=== PATIENT | female | born 1975 | race African-American/Black ===

== ENCOUNTER 2021-03-16 13:54 | Emergency (ER) | payer MEDICAID ==
[~2021-03-16] VITALS: Ht 167.6 cm; Wt 59.0 kg
[2021-03-16] MEDS ORDERED: MECLIZINE 25MG TABLET PO ONE (15:15)
[2021-03-16 15:22] LABS: BASOPHILS % 2.4 % (0.0-2.0); EOSINOPHILS % 4.1 % (0.0-5.0); HEMATOCRIT. 32.4 % (36.0-48.0); MEAN CORPUSCULAR VOLUME 71.5 fL (81.0-99.0); MEAN PLATELET VOLUME 8.9 fl (7.4-10.4); MONOCYTES % 14.5 % (2.0-8.0); PLATELET 163 x1000/uL (130-400); RED BLOOD CELL COUNT 4.54 mill/uL (4.2-5.4); RED CELL DISTRIBUTION WIDTH 23.7 % (11.6-14.6)
[2021-03-16 15:27] LABS: CHLORIDE 106 mEq/L (98-107)
[2021-03-16 15:31] LABS: PROTHROMBIN TIME 10.9 sec (9.6-11.0)
[2021-03-16 15:46] LABS: CLARITY URINE CLEAR (CLEAR); COLOR URINE YELLOW (YELLOW); KETONES URINE NEGATIVE (NEGATIVE); LEUKOCYTE ESTERASE URINE NEGATIVE (NEGATIVE); NITRITE URINE NEGATIVE (NEGATIVE); OCCULT BLOOD URINE NEGATIVE (NEGATIVE); PROTEIN URINE NEGATIVE (NEGATIVE); SPECIFIC GRAVITY URINE 1.017 (1.005-1.030); UROBILINOGEN URINE 0.2 E.U./dL (0.2-1.0)
[2021-03-16 15:50] LABS: PLATELET ESTIMATE NORMAL
[2021-03-16] MEDS ORDERED: FERR324T4 MT (16:27)
[2021-03-16 16:36] VITALS: BP 123/96
== END 2021-03-16 16:49 | disposition home or self-care (01) ==
LOC: ER 14:08
DX: R42 Dizziness and giddiness (principal)
CPT/HCPCS: 36415; 71045; 80053; 81003; 81025; 85025; 85610; 93005; 99285; J8597

== ENCOUNTER 2022-02-10 15:38 | Emergency (ER) | payer MEDICAID ==
[~2022-02-10] VITALS: Ht 167.6 cm; Wt 61.0 kg
[~2022-02-10 15:38] MED LIST: FERR324T4 MT
[2022-02-10 16:00] VITALS: BP 134/77
[2022-02-10] MEDS ORDERED: ACETAMINOPHEN 325MG TABLET PO ONE (19:15)
[2022-02-10] MEDS ORDERED: FLUORESCEIN SODIUM 1MG/STRIP RIGHTEYE ONE (19:15)
[2022-02-10] MEDS ORDERED: TETRACAINE 0.5% OPHTH DROPS 4ML RIGHTEYE ONE (19:15)
[2022-02-10] MEDS ORDERED: ACET-2708 MT (19:30)
[2022-02-10] MEDS ORDERED: ERYT1OIN6 RIGHTEYE (19:30)
== END 2022-02-10 19:47 | disposition home or self-care (01) ==
LOC: ER 15:38
DX: S05.01XA Injury of conjunctiva and corneal abrasion without foreign body, right eye, initial encounter (principal); Y04.0XXA Assault by unarmed brawl or fight, initial encounter; Y93.89 Activity, other specified; Y92.89 Other specified places as the place of occurrence of the external cause; Y99.8 Other external cause status
CPT/HCPCS: 99283

== ENCOUNTER 2022-07-13 19:30 | Emergency (ER) | payer MEDICAID ==
[~2022-07-13] VITALS: Ht 170.2 cm; Wt 68.0 kg
[~2022-07-13 19:30] MED LIST changes: +ACET-2708 MT; +ERYT1OIN6 RIGHTEYE
[2022-07-13 19:41] VITALS: BP 143/96
== END 2022-07-13 21:40 | disposition left against medical advice (07) ==
LOC: ER 19:30
DX: Z53.21 Procedure and treatment not carried out due to patient leaving prior to being seen by health care provider (principal)

== ENCOUNTER 2023-11-22 10:54 | Emergency (ER) | payer MEDICAID ==
[~2023-11-22] VITALS: Ht 170.2 cm; Wt 78.0 kg
[2023-11-22 11:33] VITALS: O2SAT 98
[2023-11-22 12:41] LABS: CLARITY URINE CLEAR (CLEAR); COLOR URINE DARK YELLOW (YELLOW); GLUCOSE URINE NEGATIVE (NEGATIVE); KETONES URINE TRACE (NEGATIVE); LEUKOCYTE ESTERASE URINE NEGATIVE (NEGATIVE); NITRITE URINE NEGATIVE (NEGATIVE); OCCULT BLOOD URINE TRACE (NEGATIVE); PH URINE 5.5 (4.5-8.0); PROTEIN URINE TRACE (NEGATIVE); SPECIFIC GRAVITY URINE 1.038 (1.005-1.030)
[2023-11-22] MEDS: KETOROLAC 60MG/2ML VIAL IM ONE (12:49)
[2023-11-22] MEDS ORDERED: IBUP-2321 MT (13:39)
[2023-11-22] MEDS ORDERED: CYCL10TA21 MT (13:39)
[2023-11-22 14:04] VITALS: BP 140/78; PULSE 88; RESP 18; TEMP 98.7
[2023-11-22 14:10] LABS: SQUAMOUS EPITHELIAL CELL URINE 3+ /lpf (RARE/1+)
[2023-11-22 14:11] LABS: BACTERIA URINE 1+; CALCIUM OXALATE CRYSTALS URINE 4+ /lpf
[2023-11-22 14:12] LABS: MUCUS URINE 1+ /lpf (< = 2+); RBC URINE NONE SEEN /hpf (0-2); WBC URINE 0-2 /hpf (0-2)
== END 2023-11-22 14:05 | disposition home or self-care (01) ==
LOC: ER 10:54
DX: M54.50 Low back pain, unspecified (principal)
CPT/HCPCS: 99283; 81003; 81025; 96372; J1885

== ENCOUNTER 2024-05-14 15:49 | Emergency (ER) | payer MEDICAID ==
[~2024-05-14] VITALS: Ht 170.2 cm; Wt 73.5 kg
[~2024-05-14 15:49] MED LIST changes: +CYCL10TA21 MT; +IBUP-2321 MT
[2024-05-14 16:15] VITALS: O2SAT 100
[2024-05-14 17:04] LABS: HEMATOCRIT. 34.6 % (36.0-48.0); HEMOGLOBIN. 10.7 g/dL (12.0-16.0); MEAN CORPUSCULAR HEMOGLOBIN 24.5 pg (28.0-32.0); MEAN CORPUSCULAR VOLUME 79.2 fL (81.0-99.0); MEAN PLATELET VOLUME 8.4 fl (7.4-10.4); PLATELET 200 x1000/uL (130-400); RED BLOOD CELL COUNT 4.37 mill/uL (4.2-5.4); WHITE BLOOD COUNT 4.2 x1000/uL (4.5-11.0)
[2024-05-14 17:05] LABS: DIFFERENTIAL COMMENT 1
[2024-05-14 17:10] LABS: CHLORIDE 108 mEq/L (98-107); POTASSIUM 3.5 mEq/L (3.5-5.1); SODIUM 140 mEq/L (136-145)
[2024-05-14] MEDS: ONDANSETRON 4MG ODT PO STA (17:10)
[2024-05-14] MEDS: FAMOTIDINE 20MG TABLET PO ONE (17:10)
[2024-05-14] MEDS: MAGNESIUM/ALUMINUM HYDROXIDE/SIMETHICONE 30ML UDC PO STA (17:10)
[2024-05-14 17:11] LABS: CARBON DIOXIDE 25 mEq/L (21-32)
[2024-05-14 17:16] LABS: CREATININE 0.9 mg/dL (0.6-1.0); GLUCOSE 153 mg/dL (70-105); UREA NITROGEN BLOOD 12 mg/dL (9-23)
[2024-05-14 17:18] LABS: ALANINE AMINOTRANSFERASE 15 IU/L (10-49); ALBUMIN 4.4 g/dL (3.2-4.8); ASPARTATE AMINOTRANSFERASE 25 IU/L (<34); BILIRUBIN TOTAL 0.4 mg/dL (0.1-1.0)
[2024-05-14 17:25] LABS: PLATELET ESTIMATE NORMAL
[2024-05-14 17:26] LABS: BILIRUBIN DIRECT < 0.1 mg/dL (<=3.0)
[2024-05-14] MEDS ORDERED: FAMO-135 MT (17:29)
[2024-05-14 17:48] VITALS: BP 141/88; PULSE 77; RESP 16; TEMP 36.89184; O2SAT 98
== END 2024-05-14 17:52 | disposition home or self-care (01) ==
LOC: ER 15:49
DX: K29.70 Gastritis, unspecified, without bleeding (principal); K21.9 Gastro-esophageal reflux disease without esophagitis; Z79.899 Other long term (current) drug therapy
CPT/HCPCS: 99284; 80076; 80048; 83690; 85025; 36415; Q0162

== ENCOUNTER 2025-01-08 19:05 | Emergency (ER) | payer MEDICAID ==
[~2025-01-08] VITALS: Ht 165.1 cm; Wt 64.0 kg
[~2025-01-08 19:05] MED LIST changes: +FAMO-135 MT
[2025-01-08 19:48] VITALS: TEMP 36.9
[2025-01-08] MEDS: PREDNISONE 20MG TABLET PO STA (22:16)
[2025-01-08 22:24] VITALS: PULSE 96; RESP 20; O2SAT 94
[2025-01-08] MEDS: ALBUTEROL (0.083%) 2.5MG/3ML NEB HHN STA (22:24)
[2025-01-08] MEDS: IPRATROPIUM BROMIDE (0.02%) 0.5MG/2.5ML NEB HHN STA (22:24)
[2025-01-09 00:02] LABS: BASOPHILS % 0.7 % (0.0-2.0); EOSINOPHILS % 1.2 % (0.0-5.0); HEMATOCRIT. 36.0 % (36.0-48.0); HEMOGLOBIN. 11.6 g/dL (12.0-16.0); LYMPHOCYTES % 39.0 % (20.0-50.0); MEAN PLATELET VOLUME 8.8 fl (7.4-10.4); MONOCYTES % 9.4 % (2.0-8.0); NEUTROPHILS % 49.7 % (40.0-76.0); PLATELET 211 x1000/uL (130-400); RED BLOOD CELL COUNT 3.76 mill/uL (4.2-5.4); RED CELL DISTRIBUTION WIDTH 19.3 % (11.6-14.6)
[2025-01-09 00:15] LABS: CREATININE 0.7 mg/dL (0.6-1.0); UREA NITROGEN BLOOD 9 mg/dL (9-23)
[2025-01-09] MEDS ORDERED: P20 MT (01:54)
[2025-01-09] MEDS ORDERED: BENZ100C86 MT (01:54)
[2025-01-09] MEDS ORDERED: AMOX1TAB16 MT (02:00)
[2025-01-09] MEDS: CLONIDINE 0.1MG TABLET PO SCH (02:30)
[2025-01-09 02:31] VITALS: BP 154/95; PULSE 92; RESP 24; O2SAT 95
== END 2025-01-09 02:40 | disposition home or self-care (01) ==
LOC: ER 19:05 → CANBEDREQ 01-09 02:07 → ER 01-09 02:40
DX: J40 Bronchitis, not specified as acute or chronic (principal); Z79.899 Other long term (current) drug therapy
CPT/HCPCS: 80048; 85025; 85379; 36415; 71045; 71250; 94640; 93005; 99285; 81025; J7512; Z7610 ×2; 94070; 94664; 98960

== ENCOUNTER 2025-02-24 14:24 | Emergency (ER) | payer MEDICAID ==
[~2025-02-24] VITALS: Ht 167.6 cm; Wt 80.0 kg
[~2025-02-24 14:24] MED LIST changes: +AMOX1TAB16 MT; +BENZ100C86 MT; +P20 MT
[2025-02-24 14:28] VITALS: O2SAT 96
[2025-02-24 15:01] LABS: BASOPHILS % 0.8 % (0.0-2.0); EOSINOPHILS % 2.5 % (0.0-5.0); HEMATOCRIT. 36.1 % (36.0-48.0); HEMOGLOBIN. 11.8 g/dL (12.0-16.0); LYMPHOCYTES % 23.9 % (20.0-50.0); MEAN PLATELET VOLUME 9.8 fl (7.4-10.4); MONOCYTES % 11.6 % (2.0-8.0); NEUTROPHILS % 61.2 % (40.0-76.0); PLATELET 158 x1000/uL (130-400); RED BLOOD CELL COUNT 3.60 mill/uL (4.2-5.4); RED CELL DISTRIBUTION WIDTH 21.9 % (11.6-14.6)
[2025-02-24 15:16] LABS: CREATININE 0.9 mg/dL (0.6-1.0); UREA NITROGEN BLOOD 10 mg/dL (9-23)
[2025-02-24 15:17] LABS: TROPONIN I HIGH SENSITIVITY < 4 ng/L (3.0-34)
[2025-02-24 15:49] LABS: CLARITY URINE TURBID (CLEAR); GLUCOSE URINE NEGATIVE (NEGATIVE); KETONES URINE NEGATIVE (NEGATIVE); LEUKOCYTE ESTERASE URINE TRACE (NEGATIVE); NITRITE URINE NEGATIVE (NEGATIVE); OCCULT BLOOD URINE 3+ (NEGATIVE); PH URINE 5.0 (4.5-8.0); PROTEIN URINE 1+ (NEGATIVE); SPECIFIC GRAVITY URINE 1.035 (1.005-1.030); UROBILINOGEN URINE 1.0 E.U./dL (0.2-1.0)
[2025-02-24 16:06] LABS: COLOR URINE DARK YELLOW (YELLOW)
[2025-02-24 16:08] LABS: BACTERIA URINE TRACE; MUCUS URINE TRACE /lpf (< = 2+); RBC URINE TNTC /hpf (0-2); SQUAMOUS EPITHELIAL CELL URINE 2+ /lpf (RARE/1+)
[2025-02-24 16:18] LABS: ASPARTATE AMINOTRANSFERASE 68 IU/L (<34); BILIRUBIN DIRECT 0.2 mg/dL (<=3.0); PROTEIN TOTAL 7.4 g/dL (6.0-8.3)
[2025-02-24 16:19] LABS: BILIRUBIN TOTAL 0.5 mg/dL (0.1-1.0)
[2025-02-24 16:32] VITALS: BP 140/91; PULSE 94; RESP 16; TEMP 36.9; O2SAT 100
== END 2025-02-24 16:41 | disposition home or self-care (01) ==
LOC: ER 14:24
DX: R20.2 Paresthesia of skin (principal); F10.10 Alcohol abuse, uncomplicated; R31.29 Other microscopic hematuria; Z79.899 Other long term (current) drug therapy; Y90.9 Presence of alcohol in blood, level not specified
CPT/HCPCS: 36415; 80048; 80076; 81003; 82140; 83735; 84484; 85025; 93005; 99284